=== PATIENT | female | born 1970 | race Caucasian/White ===

== ENCOUNTER 2021-04-22 19:08 | Inpatient (IN) | payer OTHER, SELFPAY ==
[~2021-04-22] VITALS: Ht 157.5 cm; Wt 136.1 kg
[2021-04-22 19:10] VITALS: BP_SYST 173
[2021-04-22 20:42] LABS: BASOPHILS % (AUTO) 0.6 % (0.0-2.0); EOSINOPHILS # (AUTO) 0.1 K/uL (0.0-0.4); EOSINOPHILS % (AUTO) 1.3 % (0.0-4.0); HEMATOCRIT 34.5 % (36-48); HEMOGLOBIN 11.8 g/dL (12.0-16.0); LYMPHOCYTES # (AUTO) 1.2 K/uL (1.0-5.5); LYMPHOCYTES % (AUTO) 16.5 % (20.5-51.5); MEAN CORPUSCULAR HEMOGLOBIN 31 pg (27-31); MEAN CORPUSCULAR HGB CONC 34 % (32-36); MEAN CORPUSCULAR VOLUME 91 fL (79.0-98.0); MONOCYTES # (AUTO) 0.4 K/uL (0.0-1.0); MONOCYTES % (AUTO) 5.4 % (1.7-9.3); NEUTROPHILS # (AUTO) 5.3 K/uL (1.8-7.7); NEUTROPHILS % (AUTO) 76.2 % (40.0-70.0); PLATELET COUNT (AUTO) 318 K/uL (130-430)
[2021-04-22 20:52] LABS: ANION GAP 6 (5-15); CALCIUM 9.9 mg/dL (8.4-11.0); CHLORIDE 104 mmol/L (98-107); CREATININE 1.27 mg/dL (0.55-1.30); GLUCOSE 100 mg/dL (70-99); POTASSIUM 3.2 mmol/L (3.5-5.1); SODIUM SERUM 142 mmol/L (136-145); UREA NITROGEN, BLOOD 14 mg/dL (8-21)
[2021-04-22 20:58] LABS: ALANINE AMINOTRANSFERASE 38 U/L (12-78); ALBUMIN 3.7 g/dL (3.4-4.8); ASPARTATE AMINOTRANSFERASE 56 U/L (10-37); TOTAL BILIRUBIN 0.3 mg/dL (0.0-1.0)
[2021-04-22 21:07] LABS: ALCOHOL, BLOOD < 3 mg/dL (<10); GFR AFRICAN AMERICAN 57 mL/min (>90)
[2021-04-22 21:08] LABS: ACETAMINOPHEN < 1 ug/mL (1-30)
[2021-04-22 21:09] LABS: TRIGLYCERIDES 246 mg/dL (30-150)
[2021-04-22 21:10] LABS: CHOLESTEROL 208 mg/dL (<200); HDL CHOLESTEROL 69 mg/dL (>55); LDL CHOLESTEROL 104 mg/dL (<100)
[2021-04-22] MEDS ORDERED: POTASSIUM CHLORIDE 20 MEQ TAB.PRT.SR PO ONE (21:45)
[2021-04-23] MEDS ORDERED: POTASSIUM CHLORIDE 20 MEQ TAB.PRT.SR ONE (10:29)
[2021-04-24 13:07] LABS: FREE T4 (FREE THYROXINE) 0.2 ng/dl (0.8-1.5)
[2021-04-24] MEDS ORDERED: IBUPROFEN 600 MG TABLET PO ONE (14:00)
[2021-04-24] MEDS ORDERED: DIPHENHYDRAMINE HCL 25 MG CAPSULE PO ONE (17:45)
[2021-04-25] MEDS ORDERED: IBUPROFEN 800 MG TABLET PO ONE (07:00)
[2021-04-25 07:47] LABS: BASOPHILS % (AUTO) 0.6 % (0.0-2.0); EOSINOPHILS # (AUTO) 0.1 K/uL (0.0-0.4); EOSINOPHILS % (AUTO) 1.8 % (0.0-4.0); HEMATOCRIT 34.8 % (36-48); HEMOGLOBIN 11.5 g/dL (12.0-16.0); LYMPHOCYTES # (AUTO) 1.4 K/uL (1.0-5.5); LYMPHOCYTES % (AUTO) 27.8 % (20.5-51.5); MEAN CORPUSCULAR HEMOGLOBIN 31 pg (27-31); MEAN CORPUSCULAR HGB CONC 33 % (32-36); MEAN CORPUSCULAR VOLUME 93 fL (79.0-98.0); MONOCYTES # (AUTO) 0.3 K/uL (0.0-1.0); MONOCYTES % (AUTO) 6.1 % (1.7-9.3); NEUTROPHILS # (AUTO) 3.2 K/uL (1.8-7.7); NEUTROPHILS % (AUTO) 63.7 % (40.0-70.0); PLATELET COUNT (AUTO) 273 K/uL (130-430); RED BLOOD CELL COUNT(AUTO) 3.76 MIL/uL (4.2-6.2); RED CELL DISTRIBUTION WIDTH 16.1 % (9.0-15.0)
[2021-04-25 08:24] LABS: POTASSIUM 3.5 mmol/L (3.5-5.1); SODIUM SERUM 140 mmol/L (136-145)
[2021-04-25 08:25] LABS: ALANINE AMINOTRANSFERASE 23 U/L (12-78); ALBUMIN 2.8 g/dL (3.4-4.8); ASPARTATE AMINOTRANSFERASE 29 U/L (10-37); CALCIUM 8.6 mg/dL (8.4-11.0); CHLORIDE 102 mmol/L (98-107); CREATININE 1.28 mg/dL (0.55-1.30); GFR AFRICAN AMERICAN 56 mL/min (>90); GLUCOSE 96 mg/dL (70-99); TOTAL BILIRUBIN 0.2 mg/dL (0.0-1.0); UREA NITROGEN, BLOOD 12 mg/dL (8-21)
[2021-04-25 08:27] LABS: ANION GAP < 3 (5-15)
[2021-04-25 08:50] LABS: CKMB RELATIVE INDEX 1.5 (0.0-2.9); CREATINE KINASE MB 9.4 ng/mL (0-3.6)
[2021-04-25] MEDS ORDERED: LEVO125T PO (16:15)
[2021-04-25 16:45] LABS: BILIRUBIN,URINE NEGATIVE (NEGATIVE); BLOOD, URINE 2+ (NEGATIVE); CLARITY/URINE CLOUDY (CLEAR); COLOR,URINE YELLOW (YELLOW); GLUCOSE,URINE NEGATIVE (NEGATIVE); KETONES,URINE NEGATIVE (NEGATIVE); LEUKOCYTE ESTERASE ,URINE NEGATIVE (NEGATIVE); NITRITE, URINE POSITIVE (NEGATIVE); PROTEIN URINE TRACE (NEGATIVE); UROBILINOGEN,URINE 0.2 (0.2-1.0)
[2021-04-25 16:50] LABS: BARBITURATE, URINE NEGATIVE (NEG <=200); BENZODIAZEPINE, URINE NEGATIVE (NEG <=150); CANNABINOID, URINE NEGATIVE (NEG <=50); COCAINE, URINE NEGATIVE (NEG <=150); METHAMPHETAMINES SCREEN,URINE POSITIVE (NEG <=500); OPIATE, URINE NEGATIVE (NEG <=100); PHENCYCLIDINE SCREEN,URINE NEGATIVE (NEG <=25); UR TRICYCLIC ANTIDEPRESSANTS NEGATIVE (NEG <=300); URINE AMPHETAMINE NEGATIVE (NEG <=500); URINE METHADONE NEGATIVE (NEG <=200); URINE OXYCODONE SCREEN NEGATIVE (NEG <=100); URINE PROPOXYPHENE SCREEN NEGATIVE (NEG <=300)
[2021-04-25 16:59] LABS: BACTERIA,URINE MANY /HPF (None Seen)
[2021-04-25] MEDS ORDERED: FURO-150 PO (17:43)
[2021-04-25 18:08] VITALS: BP_SYST 117
[2021-04-25] MEDS: LEVOTHYROXINE SODIUM 0.1 MG VIAL IVP SCH (18:35)
[2021-04-25] MEDS: cefTRIAXone 1 GM in D5W 50 ML IV SCH (18:38)
[2021-04-25] MEDS ORDERED: cefTRIAXone 1 GM VIAL ONE (18:40)
[2021-04-25] MEDS: LACTOBACILLUS RHAMNOSUS GG 1 CAP CAPSULE PO SCH (21:00)
[2021-04-25] MEDS: ENOXAPARIN SODIUM 40 MG/0.4 ML SYRINGE SUBCUT SCH (21:49)
[2021-04-26] MEDS: LEVOTHYROXINE SODIUM 0.1 MG VIAL IVP SCH (08:30)
[2021-04-26] MEDS: LACTOBACILLUS RHAMNOSUS GG 1 CAP CAPSULE PO SCH ×2 (08:31→20:13)
[2021-04-26] MEDS ORDERED: IBUPROFEN 800 MG TABLET ONE (09:00)
[2021-04-26] MEDS ORDERED: IBUPROFEN 800 MG TABLET PO SCH (09:00)
[2021-04-26 09:45] LABS: CALCIUM 9.2 mg/dL (8.4-11.0); CHLORIDE 99 mmol/L (98-107); CREATININE 1.08 mg/dL (0.55-1.30); GLUCOSE 129 mg/dL (70-99); POTASSIUM 4.2 mmol/L (3.5-5.1); SODIUM SERUM 140 mmol/L (136-145); UREA NITROGEN, BLOOD 10 mg/dL (8-21)
[2021-04-26 09:48] LABS: ANION GAP < 3 (5-15); GFR AFRICAN AMERICAN 69 mL/min (>90)
[2021-04-26] MEDS ORDERED: IBUPROFEN 600 MG TABLET PO PRN (10:30)
[2021-04-26] MEDS ORDERED: FAMOTIDINE 20 MG TABLET PO ONE (10:30)
[2021-04-26] MEDS ORDERED: IBUPROFEN 800 MG TABLET PO PRN (10:30)
[2021-04-26 10:50] VITALS: BP_SYST 127
[2021-04-26 11:13] LABS: THYROID STIMULATING HORMONE 255.55 uIu/mL (0.36-3.74)
[2021-04-26 16:00] VITALS: BP_SYST 153
[2021-04-26] MEDS: cefTRIAXone 1 GM in D5W 50 ML IV SCH (18:39)
[2021-04-26] MEDS: IBUPROFEN 800 MG TABLET PO PRN (19:56)
[2021-04-26 20:00] VITALS: BP_SYST 157
[2021-04-26] MEDS: ENOXAPARIN SODIUM 40 MG/0.4 ML SYRINGE SUBCUT SCH (20:14)
[2021-04-26] MEDS: FAMOTIDINE PF 20 MG/2 ML VIAL IVP SCH (20:23)
[2021-04-26] MEDS ORDERED: LISI20TA30 PO (22:35)
[2021-04-26] MEDS ORDERED: HYDR25TA4 PO (22:35)
[2021-04-27 01:11] VITALS: BP_SYST 149
[2021-04-27 06:00] LABS: BASOPHILS % (AUTO) 0.3 % (0.0-2.0); EOSINOPHILS # (AUTO) 0.1 K/uL (0.0-0.4); HEMATOCRIT 34.4 % (36-48); HEMOGLOBIN 11.3 g/dL (12.0-16.0); LYMPHOCYTES # (AUTO) 1.5 K/uL (1.0-5.5); LYMPHOCYTES % (AUTO) 26.7 % (20.5-51.5); MEAN CORPUSCULAR HEMOGLOBIN 31 pg (27-31); MEAN CORPUSCULAR HGB CONC 33 % (32-36); MEAN CORPUSCULAR VOLUME 92 fL (79.0-98.0); MONOCYTES # (AUTO) 0.4 K/uL (0.0-1.0); MONOCYTES % (AUTO) 6.1 % (1.7-9.3); NEUTROPHILS # (AUTO) 3.8 K/uL (1.8-7.7); NEUTROPHILS % (AUTO) 64.9 % (40.0-70.0); PLATELET COUNT (AUTO) 280 K/uL (130-430); RED BLOOD CELL COUNT(AUTO) 3.72 MIL/uL (4.2-6.2); RED CELL DISTRIBUTION WIDTH 15.3 % (9.0-15.0); WHITE BLOOD COUNT (AUTO) 5.8 K/uL (4.8-10.8)
[2021-04-27 06:17] LABS: CALCIUM 9.1 mg/dL (8.4-11.0); CREATININE 1.12 mg/dL (0.55-1.30); THYROID STIMULATING HORMONE 214.73 uIu/mL (0.36-3.74)
[2021-04-27] MEDS: IPRATROPIUM/ALBUTEROL SULFATE 3 ML AMPUL.NEB (DUONEB) INH PRN ×2 (07:59→22:19)
[2021-04-27 08:04] VITALS: BP_SYST 141
[2021-04-27] MEDS: LACTOBACILLUS RHAMNOSUS GG 1 CAP CAPSULE PO SCH ×2 (08:48→21:13)
[2021-04-27] MEDS: LEVOTHYROXINE SODIUM 0.1 MG VIAL IVP SCH (08:48)
[2021-04-27] MEDS: FAMOTIDINE PF 20 MG/2 ML VIAL IVP SCH ×2 (08:48→21:13)
[2021-04-27] MEDS: IBUPROFEN 800 MG TABLET PO PRN ×2 (08:49→18:36)
[2021-04-27 12:07] VITALS: BP_SYST 166
[2021-04-27] MEDS ORDERED: hydrALAZINE HCL 25 MG TABLET PO ONE (13:00)
[2021-04-27 18:32] VITALS: BP_SYST 164
[2021-04-27] MEDS: cefTRIAXone 1 GM in D5W 50 ML IV SCH (18:40)
[2021-04-27 21:00] VITALS: BP_SYST 154
[2021-04-27] MEDS: hydrALAZINE HCL 25 MG TABLET PO SCH (21:14)
[2021-04-27] MEDS: ENOXAPARIN SODIUM 40 MG/0.4 ML SYRINGE SUBCUT SCH (21:24)
[2021-04-28 01:26] VITALS: BP_SYST 104
[2021-04-28] MEDS: IBUPROFEN 800 MG TABLET PO PRN ×3 (04:29→22:03)
[2021-04-28] MEDS: hydrALAZINE HCL 25 MG TABLET PO SCH (07:02)
[2021-04-28 08:20] VITALS: BP_SYST 143
[2021-04-28] MEDS: LACTOBACILLUS RHAMNOSUS GG 1 CAP CAPSULE PO SCH ×2 (09:02→21:02)
[2021-04-28] MEDS: LEVOTHYROXINE SODIUM 0.1 MG VIAL IVP SCH (09:18)
[2021-04-28] MEDS: FAMOTIDINE PF 20 MG/2 ML VIAL IVP SCH ×2 (09:18→21:03)
[2021-04-28 10:18] VITALS: BP_SYST 143
[2021-04-28 12:02] VITALS: BP_SYST 139
[2021-04-28] MEDS ORDERED: cloNIDine HCL 0.1 MG TABLET PO PRN (15:00)
[2021-04-28] MEDS ORDERED: CHOLECALCIFEROL (VITAMIN D3) 5,000 UNIT TABLET PO ONE (15:00)
[2021-04-28] MEDS ORDERED: MULTIVITS,CA,MINERALS/IRON/FA 1 TABLET PO ONE (15:00)
[2021-04-28] MEDS: cefTRIAXone 1 GM in D5W 50 ML IV SCH (17:17)
[2021-04-28 21:00] VITALS: BP_SYST 152
[2021-04-28] MEDS: ENOXAPARIN SODIUM 40 MG/0.4 ML SYRINGE SUBCUT SCH (21:10)
[2021-04-29 00:30] VITALS: BP_SYST 148
[2021-04-29] MEDS: LEVOTHYROXINE SODIUM 0.1 MG TABLET PO SCH (06:33)
[2021-04-29 06:57] LABS: BASOPHILS % (AUTO) 0.3 % (0.0-2.0); EOSINOPHILS # (AUTO) 0.1 K/uL (0.0-0.4); EOSINOPHILS % (AUTO) 2.3 % (0.0-4.0); HEMATOCRIT 33.1 % (36-48); HEMOGLOBIN 11.1 g/dL (12.0-16.0); LYMPHOCYTES % (AUTO) 36.1 % (20.5-51.5); MEAN CORPUSCULAR HEMOGLOBIN 31 pg (27-31); MEAN CORPUSCULAR HGB CONC 34 % (32-36); MEAN CORPUSCULAR VOLUME 91 fL (79.0-98.0); MONOCYTES # (AUTO) 0.3 K/uL (0.0-1.0); MONOCYTES % (AUTO) 5.8 % (1.7-9.3); NEUTROPHILS % (AUTO) 55.5 % (40.0-70.0); PLATELET COUNT (AUTO) 297 K/uL (130-430); RED BLOOD CELL COUNT(AUTO) 3.62 MIL/uL (4.2-6.2); RED CELL DISTRIBUTION WIDTH 15.2 % (9.0-15.0); WHITE BLOOD COUNT (AUTO) 5.4 K/uL (4.8-10.8)
[2021-04-29 07:56] VITALS: BP_SYST 149
[2021-04-29 07:59] LABS: CALCIUM 9.7 mg/dL (8.4-11.0); CREATININE 1.19 mg/dL (0.55-1.30); POTASSIUM 4.1 mmol/L (3.5-5.1); THYROID STIMULATING HORMONE 180.43 uIu/mL (0.36-3.74); TOTAL BILIRUBIN 0.2 mg/dL (0.0-1.0)
[2021-04-29] MEDS: CHOLECALCIFEROL (VITAMIN D3) 5,000 UNIT TABLET PO SCH (08:58)
[2021-04-29] MEDS: MULTIVITS,CA,MINERALS/IRON/FA 1 TABLET PO SCH (08:58)
[2021-04-29] MEDS: LACTOBACILLUS RHAMNOSUS GG 1 CAP CAPSULE PO SCH ×2 (08:58→20:42)
[2021-04-29] MEDS: FAMOTIDINE PF 20 MG/2 ML VIAL IVP SCH ×2 (08:59→20:45)
[2021-04-29 12:10] VITALS: BP_SYST 182
[2021-04-29 17:14] VITALS: BP_SYST 147
[2021-04-29] MEDS: cefTRIAXone 1 GM in D5W 50 ML IV SCH (17:51)
[2021-04-29 20:00] VITALS: BP_SYST 106
[2021-04-29] MEDS: IBUPROFEN 800 MG TABLET PO PRN (20:42)
[2021-04-29] MEDS: ENOXAPARIN SODIUM 40 MG/0.4 ML SYRINGE SUBCUT SCH (20:43)
[2021-04-30 02:13] VITALS: BP_SYST 142
[2021-04-30] MEDS: LEVOTHYROXINE SODIUM 0.1 MG TABLET PO SCH (06:04)
[2021-04-30] MEDS: IBUPROFEN 800 MG TABLET PO PRN ×3 (06:05→20:19)
[2021-04-30 07:47] VITALS: BP_SYST 151
[2021-04-30 08:09] LABS: CALCIUM 9.8 mg/dL (8.4-11.0); CREATININE 1.16 mg/dL (0.55-1.30); POTASSIUM 3.9 mmol/L (3.5-5.1)
[2021-04-30] MEDS: CHOLECALCIFEROL (VITAMIN D3) 5,000 UNIT TABLET PO SCH (08:36)
[2021-04-30] MEDS: LACTOBACILLUS RHAMNOSUS GG 1 CAP CAPSULE PO SCH ×2 (08:37→20:12)
[2021-04-30] MEDS: MULTIVITS,CA,MINERALS/IRON/FA 1 TABLET PO SCH (08:37)
[2021-04-30] MEDS: FAMOTIDINE PF 20 MG/2 ML VIAL IVP SCH ×2 (08:37→20:12)
[2021-04-30 09:10] LABS: THYROID STIMULATING HORMONE 241.52 uIu/mL (0.36-3.74)
[2021-04-30] MEDS ORDERED: LEVOTHYROXINE SODIUM 0.1 MG VIAL IVP ONE (11:15)
[2021-04-30 12:00] VITALS: BP_SYST 145
[2021-04-30 16:00] VITALS: BP_SYST 155
[2021-04-30] MEDS: cefTRIAXone 1 GM in D5W 50 ML IV SCH (17:38)
[2021-04-30 20:00] VITALS: BP_SYST 134
[2021-04-30] MEDS: ENOXAPARIN SODIUM 40 MG/0.4 ML SYRINGE SUBCUT SCH (20:12)
[2021-05-01 01:34] VITALS: BP_SYST 140
[2021-05-01] MEDS ORDERED: LEVOTHYROXINE SODIUM 0.125 MG TABLET PO SCH ×2 (07:00)
[2021-05-01 08:00] VITALS: BP_SYST 120
[2021-05-01] MEDS: CHOLECALCIFEROL (VITAMIN D3) 5,000 UNIT TABLET PO SCH (09:21)
[2021-05-01] MEDS: LACTOBACILLUS RHAMNOSUS GG 1 CAP CAPSULE PO SCH ×2 (09:21→20:04)
[2021-05-01] MEDS: FAMOTIDINE PF 20 MG/2 ML VIAL IVP SCH ×2 (09:21→20:04)
[2021-05-01] MEDS: MULTIVITS,CA,MINERALS/IRON/FA 1 TABLET PO SCH (09:21)
[2021-05-01] MEDS ORDERED: LEVOTHYROXINE SODIUM 0.1 MG VIAL IVP ONE (10:00)
[2021-05-01 12:16] VITALS: BP_SYST 110
[2021-05-01 16:15] VITALS: BP_SYST 144
[2021-05-01] MEDS: cefTRIAXone 1 GM in D5W 50 ML IV SCH (18:50)
[2021-05-01 20:00] VITALS: BP_SYST 138
[2021-05-01] MEDS: IBUPROFEN 800 MG TABLET PO PRN (20:04)
[2021-05-01] MEDS: ENOXAPARIN SODIUM 40 MG/0.4 ML SYRINGE SUBCUT SCH (20:09)
[2021-05-02] VITALS: BP_SYST 144
[2021-05-02] MEDS: LEVOTHYROXINE SODIUM 0.1 MG TABLET PO SCH (05:59)
[2021-05-02 09:54] VITALS: BP_SYST 140
[2021-05-02] MEDS: LACTOBACILLUS RHAMNOSUS GG 1 CAP CAPSULE PO SCH ×2 (09:57→21:30)
[2021-05-02] MEDS: FAMOTIDINE PF 20 MG/2 ML VIAL IVP SCH ×2 (09:57→21:30)
[2021-05-02] MEDS: CHOLECALCIFEROL (VITAMIN D3) 5,000 UNIT TABLET PO SCH (09:57)
[2021-05-02] MEDS: MULTIVITS,CA,MINERALS/IRON/FA 1 TABLET PO SCH (09:57)
[2021-05-02] MEDS: IBUPROFEN 800 MG TABLET PO PRN ×2 (09:58→17:46)
[2021-05-02] MEDS ORDERED: LEVO100T PO (10:42)
[2021-05-02] MEDS ORDERED: LEVOTHYROXINE SODIUM 0.1 MG VIAL IVP ONE (11:00)
[2021-05-02 19:00] VITALS: BP_SYST 128
[2021-05-02 20:00] VITALS: BP_SYST 128; BP_SYST 134
[2021-05-02] MEDS: ENOXAPARIN SODIUM 40 MG/0.4 ML SYRINGE SUBCUT SCH (21:31)
[2021-05-03] VITALS (7 sets, daily range): BP systolic 126–136
[2021-05-03] MEDS: LEVOTHYROXINE SODIUM 0.1 MG TABLET PO SCH (06:19)
[2021-05-03] MEDS: CHOLECALCIFEROL (VITAMIN D3) 5,000 UNIT TABLET PO SCH (08:35)
[2021-05-03] MEDS: LACTOBACILLUS RHAMNOSUS GG 1 CAP CAPSULE PO SCH ×2 (08:35→22:36)
[2021-05-03] MEDS: FAMOTIDINE PF 20 MG/2 ML VIAL IVP SCH ×2 (08:36→22:37)
[2021-05-03] MEDS: MULTIVITS,CA,MINERALS/IRON/FA 1 TABLET PO SCH (08:36)
[2021-05-03] MEDS: IBUPROFEN 800 MG TABLET PO PRN ×2 (12:59→22:48)
[2021-05-03] MEDS: ENOXAPARIN SODIUM 40 MG/0.4 ML SYRINGE SUBCUT SCH (22:38)
[2021-05-04] VITALS: BP_SYST 126
[2021-05-04] MEDS: LEVOTHYROXINE SODIUM 0.1 MG TABLET PO SCH (06:34)
[2021-05-04 06:48] LABS: BASOPHILS # (AUTO) 0.1 K/uL (0.0-0.2); BASOPHILS % (AUTO) 0.8 % (0.0-2.0); EOSINOPHILS # (AUTO) 0.1 K/uL (0.0-0.4); EOSINOPHILS % (AUTO) 1.4 % (0.0-4.0); HEMATOCRIT 32.4 % (36-48); HEMOGLOBIN 10.8 g/dL (12.0-16.0); LYMPHOCYTES # (AUTO) 2.2 K/uL (1.0-5.5); LYMPHOCYTES % (AUTO) 25.9 % (20.5-51.5); MEAN CORPUSCULAR HEMOGLOBIN 31 pg (27-31); MEAN CORPUSCULAR HGB CONC 33 % (32-36); MEAN CORPUSCULAR VOLUME 92 fL (79.0-98.0); MONOCYTES # (AUTO) 0.5 K/uL (0.0-1.0); MONOCYTES % (AUTO) 5.5 % (1.7-9.3); NEUTROPHILS # (AUTO) 5.5 K/uL (1.8-7.7); NEUTROPHILS % (AUTO) 66.4 % (40.0-70.0); PLATELET COUNT (AUTO) 325 K/uL (130-430); RED BLOOD CELL COUNT(AUTO) 3.54 MIL/uL (4.2-6.2); RED CELL DISTRIBUTION WIDTH 16.1 % (9.0-15.0); WHITE BLOOD COUNT (AUTO) 8.3 K/uL (4.8-10.8)
[2021-05-04] MEDS: IBUPROFEN 800 MG TABLET PO PRN ×2 (07:05→20:40)
[2021-05-04 07:32] LABS: ALBUMIN 3.3 g/dL (3.4-4.8); CALCIUM 9.5 mg/dL (8.4-11.0); CREATININE 1.26 mg/dL (0.55-1.30); THYROID STIMULATING HORMONE 169.87 uIu/mL (0.36-3.74); TOTAL BILIRUBIN 0.2 mg/dL (0.0-1.0)
[2021-05-04 08:00] VITALS: BP_SYST 137
[2021-05-04] MEDS: MULTIVITS,CA,MINERALS/IRON/FA 1 TABLET PO SCH (10:13)
[2021-05-04] MEDS: CHOLECALCIFEROL (VITAMIN D3) 5,000 UNIT TABLET PO SCH (10:13)
[2021-05-04] MEDS: LACTOBACILLUS RHAMNOSUS GG 1 CAP CAPSULE PO SCH ×2 (10:13→20:40)
[2021-05-04] MEDS: FAMOTIDINE PF 20 MG/2 ML VIAL IVP SCH (10:13)
[2021-05-04 11:00] VITALS: BP_SYST 126
[2021-05-04 12:00] VITALS: BP_SYST 129
[2021-05-04 16:00] VITALS: BP_SYST 136
[2021-05-04] MEDS: FAMOTIDINE 20 MG TABLET PO SCH (20:41)
[2021-05-04] MEDS: ENOXAPARIN SODIUM 40 MG/0.4 ML SYRINGE SUBCUT SCH (20:49)
[2021-05-05 00:55] VITALS: BP_SYST 150
[2021-05-05] MEDS: LEVOTHYROXINE SODIUM 0.1 MG TABLET PO SCH (07:52)
[2021-05-05 08:00] VITALS: BP_SYST 129
[2021-05-05] MEDS: MULTIVITS,CA,MINERALS/IRON/FA 1 TABLET PO SCH (08:35)
[2021-05-05] MEDS: CHOLECALCIFEROL (VITAMIN D3) 5,000 UNIT TABLET PO SCH (08:35)
[2021-05-05] MEDS: LACTOBACILLUS RHAMNOSUS GG 1 CAP CAPSULE PO SCH ×2 (08:35→21:16)
[2021-05-05] MEDS: FAMOTIDINE 20 MG TABLET PO SCH ×2 (08:35→21:16)
[2021-05-05] MEDS: IBUPROFEN 800 MG TABLET PO PRN ×2 (08:38→16:16)
[2021-05-05 16:01] VITALS: BP_SYST 132
[2021-05-05 20:00] VITALS: BP_SYST 129
[2021-05-05] MEDS: ENOXAPARIN SODIUM 40 MG/0.4 ML SYRINGE SUBCUT SCH (21:26)
[2021-05-06] VITALS: BP_SYST 116
[2021-05-06] MEDS: IBUPROFEN 800 MG TABLET PO PRN ×2 (00:28→08:06)
[2021-05-06] MEDS: LEVOTHYROXINE SODIUM 0.1 MG TABLET PO SCH (06:10)
[2021-05-06 08:00] VITALS: BP_SYST 134
[2021-05-06] MEDS: LACTOBACILLUS RHAMNOSUS GG 1 CAP CAPSULE PO SCH (08:02)
[2021-05-06] MEDS: MULTIVITS,CA,MINERALS/IRON/FA 1 TABLET PO SCH (08:02)
[2021-05-06] MEDS: FAMOTIDINE 20 MG TABLET PO SCH (08:03)
[2021-05-06] MEDS: CHOLECALCIFEROL (VITAMIN D3) 5,000 UNIT TABLET PO SCH (08:03)
[2021-05-06 12:52] VITALS: BP_SYST 121
[2021-05-06 13:57] VITALS: BP_SYST 143
== END 2021-05-06 15:20 | disposition home health service (06) | DRG 140 ==
LOC: SED 19:08 → STU 04-25 17:05 → SMU 04-28 13:04
PROVIDERS: ADMIT Internal Medicine; ATTEND Internal Medicine
PROC: 5A09557 Assistance with Respiratory Ventilation, Greater than 96 Consecutive Hours, Continuous Positive Airway Pressure (ICD-10-PCS; principal; 2021-04-23)
PROC: 5A09457 Assistance with Respiratory Ventilation, 24-96 Consecutive Hours, Continuous Positive Airway Pressure (ICD-10-PCS; 2021-05-04)
DX: J44.1 Chronic obstructive pulmonary disease with (acute) exacerbation (principal); J96.01 Acute respiratory failure with hypoxia; E43 Unspecified severe protein-calorie malnutrition; I10 Essential (primary) hypertension; E03.9 Hypothyroidism, unspecified; G47.33 Obstructive sleep apnea (adult) (pediatric); E66.01 Morbid (severe) obesity due to excess calories; D64.9 Anemia, unspecified; N39.0 Urinary tract infection, site not specified; B96.20 Unspecified Escherichia coli [E. coli] as the cause of diseases classified elsewhere; F15.10 Other stimulant abuse, uncomplicated; F41.0 Panic disorder [episodic paroxysmal anxiety]; I80.8 Phlebitis and thrombophlebitis of other sites; Z20.822 Contact with and (suspected) exposure to COVID-19; Z68.43 Body mass index [BMI] 50.0-59.9, adult; Z79.890 Hormone replacement therapy; Z79.899 Other long term (current) drug therapy
CPT/HCPCS: 36415; 36600; 71045; 76536-TC; 80048; 80053; 80061; 80307; 81000; 82140; 82550; 82553; 82803-TC; 83036; 83880; 84439; 84443; 84484; 84703; 85025; 85610-TC; 85730-TC; 87081; 87086; 93005; 93306; 94660; 94760; 97116-GP; 97530-GP; 99285; G0378; G0480; G0481; G0482; J0696; J1650; J3490; J7060; Q0163

== ENCOUNTER 2021-12-28 18:14 | Emergency (ER) | payer OTHER ==
[~2021-12-28] VITALS: Ht 162.6 cm; Wt 108.9 kg
[2021-12-28 18:14] VITALS: BP_SYST 128
[~2021-12-28 18:14] MED LIST: LEVO100T PO
[2021-12-28] MEDS ORDERED: NACL 0.9% 1,000 ML IV ONE (19:00)
[2021-12-28] MEDS ORDERED: CEFAZOLIN 1 GM IVPB PREMIX 50 ML IV ONE (19:00)
[2021-12-28] MEDS ORDERED: ACETAMINOPHEN 500 MG TABLET PO ONE (19:00)
[2021-12-28 19:48] LABS: BASOPHILS % (AUTO) 0.9 % (0.0-2.0); EOSINOPHILS # (AUTO) 0.1 K/uL (0.0-0.4); EOSINOPHILS % (AUTO) 1.4 % (0.0-4.0); HEMATOCRIT 34.2 % (36-48); HEMOGLOBIN 10.9 g/dL (12.0-16.0); LYMPHOCYTES # (AUTO) 1.1 K/uL (1.0-5.5); MEAN CORPUSCULAR HEMOGLOBIN 25 pg (27-31); MEAN CORPUSCULAR HGB CONC 32 % (32-36); MEAN CORPUSCULAR VOLUME 78 fL (79.0-98.0); MONOCYTES # (AUTO) 0.3 K/uL (0.0-1.0); MONOCYTES % (AUTO) 5.9 % (1.7-9.3); NEUTROPHILS % (AUTO) 71.8 % (40.0-70.0); PLATELET COUNT (AUTO) 429 K/uL (130-430); RED BLOOD CELL COUNT(AUTO) 4.39 MIL/uL (4.2-6.2); RED CELL DISTRIBUTION WIDTH 18.9 % (9.0-15.0); WHITE BLOOD COUNT (AUTO) 5.5 K/uL (4.8-10.8)
--- NOTE | 2021-12-28 19:51 | NUR ---
Patient to ER bed 06 to gown for evaluation. Side rails up. Report given to GI Loo
[2021-12-28 19:53] LABS: CALCIUM 9.8 mg/dL (8.4-11.0); CREATININE 1.13 mg/dL (0.55-1.30); POTASSIUM 3.2 mmol/L (3.5-5.1)
[2021-12-28 20:08] LABS: ALBUMIN 3.2 g/dL (3.4-4.8); TOTAL BILIRUBIN 0.2 mg/dL (0.0-1.0)
--- NOTE | 2021-12-28 20:25 | NUR ---
US TECH AT BEDSIDE.
--- NOTE | 2021-12-28 20:29 | NUR ---
PT BIBA FROM HOME FOR C/O YOVANY LOWER LEG PAIN /CELLULITIS FOR 5 DAYS, STATES WORSENING IN THE LAST 3 DAYS. BLE-DISCOLORED, ERYTHEMA, ODOROUS, PAINFUL TO TOUCH. DENIES FEVERS/CHILLS. STATES THIS HAS OCCURRED COUPLE OF TIMES AND WAS TREATED WITH IV ANTIBIOTICS. PT AMBULATES WITH MIN ASSIST. RESP EVEN AND UNLABORD, ON RA @92%, REPORTS USING CPAP AT [facility], DR KINSEY MADE AWARE.
--- NOTE | 2021-12-28 20:41 | NUR ---
Dmitri paz in [facility] - 12/28/21 at 2102 by [email or web address] US AT BEDSIDE
[2021-12-28] MEDS ORDERED: CEPH-548 PO (21:16)
[2021-12-28] MEDS ORDERED: IBUP-1969 PO (21:16)
--- NOTE | 2021-12-28 21:18 | NUR ---
PT REQUETS TO ASSIST WITH MAKING A PHONE CALL TO [phone], NO ANSWER, LEFT MESSAGE. PT INFORMED.
[2021-12-28] MEDS ORDERED: LEVO100T PO (21:29)
--- NOTE | 2021-12-28 21:41 | NUR ---
FELICITAS DAMON AND LILIAN ALANIS INFORMED ABOUT TRANSPORATION NEEDS. PT CAN NOT WALK WITHOUT A WALKER, BLE CELLULITIS.
--- NOTE | 2021-12-28 22:07 | NUR ---
BOXED LUNCH PROVIDED REQUESTED.
--- NOTE | 2021-12-28 22:40 | NUR ---
ATTEMPTED TO CALL MULTIPE NUMBERS PROVIDED BY PT, NO ANSWER, ANOTHER ONE-DISCONNECTED. ESCALATOR SERVICE MECHANIC INFORMED TO CALL FOR AMBULANCE FOR TRANSPORTATION.
--- NOTE | 2021-12-28 23:50 | NUR ---
PT REQUESTING TO BE PLACED ON CPAP OF 10, 25%, DR HOFFMAN INFORMED. RT AT BEDSIDE.
--- NOTE | 2021-12-29 00:05 | NUR ---
PT PLACED ON BIPAP INSTEAD, 25/03 BACK UP RATE 20, FIO2-35%
[2021-12-29 01:32] VITALS: BP_SYST 129
--- NOTE | 2021-12-29 01:32 | NUR ---
Patient given written and verbal discharge instructions and verbalizes understanding. ER MD discussed with patient the results and treatment provided. Patient in stable condition. ID arm band removed. IV catheter removed intact and dressing applied, no active bleeding. Patient educated on pain management and to follow up with PMD. Pain Scale . Opportunity for questions provided and answered. Medication side effect fact sheet provided.
== END 2021-12-29 01:32 | disposition home or self-care (01) ==
LOC: SED 18:14
DX: L03.115 Cellulitis of right lower limb (principal); I87.2 Venous insufficiency (chronic) (peripheral); D64.9 Anemia, unspecified; E87.6 Hypokalemia; I10 Essential (primary) hypertension; F12.90 Cannabis use, unspecified, uncomplicated; Z20.822 Contact with and (suspected) exposure to COVID-19
CPT/HCPCS: 36415; 80053; 83605; 85025; 87040; 87426; 93970; 96361; 96365; 99284; J0690